=== PATIENT | male | born 1990 | race Caucasian/White ===

== ENCOUNTER 2024-02-12 10:17 | Emergency (ER) | payer OTHER ==
[~2024-02-12] VITALS: Ht 149.9 cm; Wt 64.0 kg
[2024-02-12 10:28] VITALS: BP 113/74; PULSE 75; RESP 17; TEMP 97.7; O2SAT 97
[2024-02-12] MEDS ORDERED: IBUP-2213 PO (10:55)
[2024-02-12] MEDS ORDERED: AMOX500C25 PO (10:55)
[2024-02-12] MEDS: KETOROLAC 30 MG/ML VIAL IM ONE (11:03)
[2024-02-12] MEDS: LIDOCAINE 2% 100 MG/5 ML UJET TP ONE (11:04)
== END 2024-02-12 11:18 | disposition home or self-care (01) ==
LOC: MED 10:17
DX: K02.9 Dental caries, unspecified (principal); K04.7 Periapical abscess without sinus; Z79.899 Other long term (current) drug therapy
CPT/HCPCS: 96372; 99283; J1885